=== PATIENT | male | born 1945 | race Asian ===

== ENCOUNTER 2017-04-06 09:03 | Emergency (ER) | payer OTHER ==
[2017-04-06 11:10] LABS: PLATELET COUNT 183 x10^3mcL (130-400); RED CELL DISTRIBUTION WIDTH 13.1 % (11.5-14.5)
[2017-04-06 11:12] LABS: microscopic required? YES; urine erythrocyte TRACE (NEGATIVE)
[2017-04-06 11:14] LABS: CALCIUM 7.7 mg/dL (8.5-10.1); CARBON DIOXIDE 27.3 mmol/L (21-32); CREATININE SERUM 1.3 mg/dL (0.7-1.3); POTASSIUM SERUM 4.1 mmol/L (3.5-5.1)
[2017-04-06 11:17] LABS: BASOPHIL % 0 % (0-2)
[2017-04-06 13:26] VITALS: BP 113/69
== END 2017-04-06 13:26 | disposition home or self-care (01) ==
LOC: ED 09:03
PROVIDERS: Emergency Medicine Emergency Medical Services
DX: R31.29 Other microscopic hematuria (principal); R30.0 Dysuria; R11.0 Nausea; I10 Essential (primary) hypertension; Z79.82 Long term (current) use of aspirin
CPT/HCPCS: 36415